=== PATIENT | male | born 1945 | race Caucasian/White ===

== ENCOUNTER 2019-12-03 12:44 | Inpatient (IN) | payer MEDICARE ==
[~2019-12-03] VITALS: Ht 177.8 cm; Wt 75.3 kg
[2019-12-03] VITALS (9 sets, daily range): BP systolic 122–180; BP diastolic 65–87
--- NOTE | 2019-12-03 12:48 | ER.PDOC ---
General Chief Complaint: Requesting Medical Care Stated Complaint: HIP PAIN Time seen by MD: 12:47 Source: patient Exam Limitations: no limitations History of Present Illness Initial Comments patient getting his out of the car and tripped over uneven parking lot concrete Occurred: just prior to arrival Severity: moderate Injuries/Pain Location: head, lower extremity Context: Tripped Loss of Consciousness: No Loss of Consciousness Review of Systems Constitutional: denies fever Eyes: denies blindness Ears, Nose, Mouth, Throat: denies ear pain Respiratory: denies cough, denies shortness of breath Cardiovascular: denies chest pain, denies palpitations, denies syncope Gastrointestinal: denies abdominal pain, denies vomiting Genitourinary: denies pain Musculoskeletal: denies neck pain Skin: denies rash Psychiatric/Neurological: headache Physical Exam General Appearance: No Apparent Distress, WD/WN Head: Contusions, Tenderness Eyes: bilateral eye normal inspection, bilateral eye PERRL, bilateral eye EOMI Ears, Nose, Mouth, Throat: No Evidence of ENT Injury Neck: Non-Tender Cardiovascular/Respiratory: Regular Rate, Rhythm Gastrointestinal: Non Tender Back: Normal Inspection Extremities: Tenderness Neurologic/Psychiatric: behavioral health consultant II-XII NML as Tested, Alert, Normal Mood/Affect, Oriented x 3 Skin: Normal Color Comments tenderness left hip left elbow and abrasion left parietal area, patient has residual lue and lle weakness and difficulty speaking from previous stroke. Dilma Coma Score Best Eye Response: (4) Open Spontaneously Best Verbal Response: (5) Oriented Best Motor Response: (6) Obeys Commands Results/Orders Results/Orders Orders - LUCRETIA REINA MD Cbc With Auto Diff (12/03/19 12:52) Comprehensive Metabolic Panel (12/03/19 12:52) Creatine Kinase (12/03/19 12:52) Creatine Kinase Mb (12/03/19 12:52) Troponin I (12/03/19 12:52) PT (12/03/19 12:52) Partial Thromboplastin Time. (12/03/19 12:52) Ekg-Routine (12/03/19 12:52) Saline Lock (12/03/19 12:52) Ct Head Wo Contrast (12/03/19 13:18) Ct Cervical Spine (12/03/19 13:18) Xr Hip Lt 2v W/Pelvis (3/6/20 13:18) Xr Elbow Lt (12/03/19 13:18) Morphine Sulfate (Morphine Sulfate) (12/03/19 14:30) Ondansetron Hcl/Pf (Zofran) (12/03/19 14:30) 0.9 % Sodium Chloride (Ns 1000ml) (12/03/19 14:30) Vital Signs Date Time Temp Pulse Resp B/P (MAP) Pulse Ox O2 Delivery O2 Flow Rate FiO2 12/03/19 14:08 98.2 82 18 180/87 (118) 98 Room Air 12/03/19 14:07 98.2 82 18 12/03/19 13:58 98.2 82 20 98 Laboratory Tests Test 12/03/19 13:05 White Blood Count 7.2 10^3/uL (4.5-11.0) Red Blood Count 4.98 10^6/uL (4.50-5.90) Hemoglobin 14.8 g/dL (13.9-16.3) Hematocrit 44.3 % (37.0-53.0) Mean Corpuscular Volume 89.0 fL (78-100) Mean Corpuscular Hemoglobin 29.7 pg (26-34) Mean Corpuscular Hemoglobin Concent 33.4 g/dL (33-36.5) Red Cell Distribution Width 12.8 % (11.5-14.5) Platelet Count 257 10^3/uL (150-400) Mean Platelet Volume 9.0 fL (7.8-11.0) Neutrophils (%) (Auto) 73.1 % (41.0-85.0) Lymphocytes (%) (Auto) 13.5 % (24.0-44.0) L Monocytes (%) (Auto) 7.9 % (5.0-12.0) Neutrophils # (Auto) 5.3 10^3/uL (1.8-7.7) Lymphocytes # (Auto) 0.98 10^3/uL1 (1.0-4.8) L Monocytes # (Auto) 0.6 10^3/uL (0.3-0.8) Absolute Immature Granulocyte (auto 0.02 10^3 u/L (0-2) Absolute Eosinophils (auto) 0.3 10^3/uL (0.0-0.2) H Immature Granulocytes % 0.30 % (0.00-0.50) Eosinophils % 4.1 % (0.0-5.0) Basophils % 1.1 % (0.0-0.2) H Basophils # 0.1 10^3/uL (0.0-0.1) Prothrombin Time 10.5 SEC (9.3-11.3) Prothrombin Time INR (Non-Therap) 1.0 Activated Partial Thromboplast Time 27.0 SEC (24.67-30.72) Sodium Level 139 mmol/L (132-145) Potassium Level 3.4 mmol/L (3.6-5.2) L Chloride Level 102.0 mmol/L (96-109) Carbon Dioxide Level 28.3 mmol/L (20.0-32) Anion Gap 12.1 Blood Urea Nitrogen 19 mg/dL (7-18) H Creatinine 1.27 mg/dL (0.59-1.40) Estimated GFR () 66.9 (>/=60) Est GFR (CKD-EPI)(Non-Afr Croatian) 55.3 (>/=60) BUN/Creatinine Ratio 14.0 Glucose Level 126 mg/dL (70-110) H Calcium Level 8.9 mg/dL (8.4-10.5) Total Bilirubin 0.7 mg/dL (0.2-1.0) Aspartate Amino Transferase (AST) 19 U/L (0-35) Alanine Aminotransferase (ALT) 20 U/L (12-78) Alkaline Phosphatase 74 U/L (50-136) Total Creatine Kinase 132 U/L (39-308) Creatine Kinase MB 2.0 ng/mL (0.5-3.6) Troponin I < 0.02 ng/mL (0.00-0.05) Total Protein 7.2 g/dL (6.4-8.2) Albumin 3.8 g/dL (3.4-5.0) Globulin 3.4 Progress Progress discussed case with dr high for admission at 1410, patient was not sure if he was going to stay in hospital which delayed call to ortho. Departure Time of Disposition: 14:18 Disposition: 09 ADMITTED INPATIENT Impression: Primary Impression: Hip fracture Condition: Stable Duration or Time Spent with Pa: LUCRETIA ERVIN MD Dec 03, 2019 12:48
[2019-12-03 13:20] LABS: BASOPHIL # 0.1 10^3/uL (0.0-0.1); BASOPHIL % 1.1 % (0.0-0.2); EOSINOPHIL # 0.3 10^3/uL (0.0-0.2); EOSINOPHIL % 4.1 % (0.0-5.0); LYMPHOCYTES # 0.98 10^3/uL1 (1.0-4.8); LYMPHOCYTES % 13.5 % (24.0-44.0); MEAN CORP HGB 29.7 pg (26-34); MONOCYTES # 0.6 10^3/uL (0.3-0.8); MONOCYTES % 7.9 % (5.0-12.0); NEUTROPHIL # 5.3 10^3/uL (1.8-7.7); NEUTROPHILS % 73.1 % (41.0-85.0); PLATELET COUNT 257 10^3/uL (150-400); RED CELL DISTRIBUTION WIDTH 12.8 % (11.5-14.5)
[2019-12-03 13:45] LABS: ALANINE AMINOTRANSFERASE(ML) 20 U/L (12-78); ALKALINE PHOSPHATASE 74 U/L (50-136); ASPARTATE AMINO TRANSFERASE 19 U/L (0-35); CALCIUM 8.9 mg/dL (8.4-10.5); CARBON DIOXIDE 28.3 mmol/L (20.0-32); GLUCOSE 126 mg/dL (70-110)
--- NOTE | 2019-12-03 13:48 | DIREP ---
PROCEDURE:CT HEAD OR BRAIN W/O CONTRAST COMPARISON:None. INDICATIONS:fall and pain TECHNIQUE:CT images were created without intravenous contrast. FINDINGS: VENTRICLES:The ventricles are normal in size and configuration. CEREBRUM:Small old lacunar infarcts in the right thalamus and right basal ganglia. Chronic microvascular ischemic changes in the deep white matter of both cerebral hemispheres. No CT evidence of acute hemorrhage or infarct or mass or midline shift. CEREBELLUM:Negative. BRAINSTEM:Negative. BASAL CISTERNS:Negative. HEMORRHAGE:No MASS LESION:No ACUTE INFARCT:No SKULL:Normal. SINUSES:Severe mucosal thickening in the ethmoid and maxillary sinuses and a small fluid level in the right frontal sinus. In the appropriate clinical setting, this could represent acute sinusitis. Incidental note is made of a small osteoma in the left frontal sinus. OTHER:None CONCLUSION: 1. Severe mucosal thickening in the ethmoid and maxillary sinuses with small fluid level in the right frontal sinus. In the appropriate clinical setting, this could represent acute sinusitis. 2. Old lacunar infarcts in the right thalamus and right basal ganglia and chronic microvascular ischemic changes in the deep white matter of both cerebral hemispheres with no CT evidence of acute brain abnormalities. Dictated by: Galo El M.D. on 12/03/2019 at 01:41 PM
--- NOTE | 2019-12-03 13:52 | DIREP ---
PROCEDURE: CT SPINE CERVICAL W/O COMPARISON:None. INDICATIONS:fall and pain FINDINGS: ALIGNMENT:Normal. VERTEBRAE:Vertebral body heights are maintained. No evidence of fracture. Dorsal facet arthropathy is present. Degenerative disc disease noted at C5-6 and C6-7. PARASPINAL AREA:Normal. OTHER:Emphysema. There is a questionable 11 mm noncalcified nodule in the medial aspect of the right lung apex. Paranasal sinus disease CONCLUSION: Degenerative changes of the cervical spine. No evidence of acute cervical spine fracture. Questionable right lung apex nodule. CT imaging of the chest is recommended Dictated by: Aide Weston M.D. on 12/03/2019 at 01:47 PM
--- NOTE | 2019-12-03 13:55 | DIREP ---
PROCEDURE:XRAY HIP MIN 2VW-LT COMPARISON:None. INDICATIONS:fall and pain FINDINGS: BONES:Subcapital fracture of the femoral neck with minimal displacement. JOINTS:Normal. SOFT TISSUES:Normal. OTHER:No additional findings. CONCLUSION:Subcapital fracture left femoral neck with minimal displacement. Dictated by: Wayne Cook M.D. on 12/03/2019 at 01:51 PM
--- NOTE | 2019-12-03 13:56 | DIREP ---
PROCEDURE:XRAY ELBOW 2VWS-LT COMPARISON:None. INDICATIONS:fall and pain FINDINGS: BONES:Normal. JOINTS:Normal. No displaced anterior or posterior fat pads. SOFT TISSUES:Normal. OTHER:Normal. CONCLUSION:Normal left elbow. Dictated by: Wayne Cook M.D. on 12/03/2019 at 01:54 PM
--- NOTE | 2019-12-03 14:16 | PCM.EKG ---
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
[2019-12-03] MEDS ORDERED: MORPHINE SULFATE IV ONE (14:30)
[2019-12-03] MEDS ORDERED: NS 1000ML 1,000 ML IV ONE (14:30)
[2019-12-03] MEDS ORDERED: ZOFRAN IV ONE (14:30)
--- NOTE | 2019-12-03 15:11 | ER.CONS ---
DATE OF SERVICE: CHIEF COMPLAINT: Painful left hip. HISTORY OF PRESENT ILLNESS: The patient is a 74-year-old male who is currently on route between [place] and [place]. He fell outside of his moving van and was unable to ambulate, complaining of pain about the left hip. The patient was seen by the Emergency Room physician, whose exam and x-rays showed a left femoral neck fracture. PHYSICAL EXAMINATION: The patient's exam today shows that he has some abrasions about the left elbow, but demonstrates normal flexion and extension. The x-rays about the left elbow did not show any fractures or dislocations. The patient's left hip has no bruising or open wounds. He has decreased range of motion secondary to pain. The x-rays show a subcapital fracture of the left hip. The patient's right upper extremity and right lower extremity have no areas of tenderness or deformity. ASSESSMENT: Left femoral neck fracture. PLAN: The patient will be admitted for bipolar arthroplasty. The patient will be cleared by the hospitalist and taken to the operating room once he is cleared. Crescencio Aguilar MD DR: RONAK/ebenezer JOB# [id number]
[2019-12-03] MEDS ORDERED: LISI-410 PO (15:17)
--- NOTE | 2019-12-03 15:52 | HPH ---
ADMIT DATE: 12/03/2019 CHIEF COMPLAINT: Painful left hip. HISTORY OF PRESENT ILLNESS: The patient is a 74-year-old male, previous community ambulator with a cane because of arthritis in his knees and previous CVA, fell outside of his moving van this afternoon and injured his left hip. The patient has had 2 previous CVAs; however, no significant weakness other than a little bit of a left foot drop. The patient and his are en route between [place] and [place]. The patient's x-rays show a left femoral neck fracture. He has no other apparent injuries. PAST MEDICAL HISTORY AND MEDICAL PROBLEMS: Include a history of hypertension as well as a history of 2 previous CVAs. He did not have significant weakness other than some mild weakness about the left foot as a result of these CVAs. PAST SURGICAL HISTORY: Includes cholecystectomy as well as tonsillectomy and carotid stent. MEDICATIONS: Include Lisinopril. ALLERGIES: He has no known drug allergies. SOCIAL HISTORY: The patient is . He does not smoke or drink. FAMILY HISTORY: Unknown. REVIEW OF SYSTEMS: Positive for some difficulty ambulating because of weakness about the left foot. Otherwise, negative for chest pain, shortness of breath, nausea, vomiting, melena, hematochezia, dysuria, hematuria, fever, chills or weight loss. PHYSICAL EXAMINATION: GENERAL: Today shows an elderly 74-year-old white male in no acute distress. HEENT: Within normal limits for his age. CHEST: Clear to auscultation bilaterally. HEART: Regular rate and rhythm. No murmurs. ABDOMEN: Soft, nontender, good bowel sounds. EXTREMITIES: The patient's left hip has tenderness to palpation. He has decreased range of motion about the left hip secondary to pain. He has no open wounds or bruising about the left hip. His left elbow has some superficial skin tears, but has good flexion and extension with no pain. NEUROLOGICAL: The patient is awake and alert. He is oriented x 3. Cranial nerves 2-12 grossly intact. He has 5/5 strength of all muscle groups of both upper and lower extremities except about the left hip, limited by pain. IMAGING STUDIES: The patient's x-rays show a left subcapital hip fracture. ASSESSMENT: 1. Left femoral neck fracture. 2. History of hypertension. 3. History of cerebrovascular accident. PLAN: The patient will be admitted to my service. He will be evaluated by the hospitalist. We will plan on bipolar arthroplasty once the patient is cleared medically. Crescencio Aguilar MD DR: RONAK/ebenezer JOB# [id number]
--- NOTE | 2019-12-03 16:10 | NUR ---
ARRIVAL Pt ARRIVED TO THE ROOM 340 FROM ER IN STRETCHER ACCOMPANIED BY ER NURSE SAGRARIO RN, REPORT RECEIVED FROM NURSE, REORIENTED Pt TO ROOM , CALL DAWSON REENFORCED TO USE CALL DAWSON Pt VERBALIZED UNDERSTANDING.
[2019-12-03] MEDS ORDERED: APRESOLINE IV PRN (16:30)
[2019-12-03] MEDS ORDERED: ZESTRIL PO SCH (16:30)
[2019-12-03] MEDS ORDERED: KLOR-CON 10 PO ONE (16:30)
[2019-12-03] MEDS ORDERED: ULTRAM PO PRN ×2 (18:00)
[2019-12-03] MEDS ORDERED: ZOFRAN IV PRN (18:00)
--- NOTE | 2019-12-03 18:54 | DIREP ---
PROCEDURE:CHEST 1 VIEW COMPARISON:None. INDICATIONS:preop, cough FINDINGS: LUNGS/PLEURA:Small left basilar airspace opacity. No effusion noted. VASCULATURE:Normal. Unremarkable pulmonary vasculature. CARDIAC:Normal. No cardiac silhouette abnormality or cardiomegaly. MEDIASTINUM:Calcified aorta. BONES:Degenerative changes. OTHER:EKG leads. CONCLUSION:Small left basilar airspace opacity, which may represent pneumonia in the proper clinical setting. Dictated by: Isis Oneill M.D. on 12/03/2019 at 06:51 PM
--- NOTE | 2019-12-03 20:46 | CNH ---
DATE OF CONSULTATION: 12/03/2019 HISTORY OF PRESENT ILLNESS: The patient is a 74-year-old male who was admitted by the Orthopedic Surgery by the orthopedic surgeon for fall with subsequent left femoral neck fracture. I was requested to evaluate him for preoperative evaluation/medical management. The patient indicates that he fell at approximately 1:00 p.m. on the day of hospitalization. He states he was helping his out of the car when he stepped on uneven pavement and lost his balance and subsequently fell landing on his left hip and hitting the left side of his head as well. He denies loss of consciousness. At the present time, the patient denies pain of his left hip since he received analgesia in the Emergency Department. He presents for further evaluation. PAST SURGICAL HISTORY: Cholecystectomy, appendectomy, tonsillectomy, right carotid stent. FAMILY HISTORY: Cancer, stroke, diabetes, coronary artery disease, hypertension, hyperlipidemia. SOCIAL HISTORY: Tobacco active smoker. Alcohol denies. Caffeine drinks coffee, tea and cola. Drugs, never. ALLERGIES: No known drug allergies. CODE STATUS: Full. PHYSICAL EXAMINATION: VITAL SIGNS: Blood pressure 168/82, pulse 76, respirations 18, temperature 98.6, 98% on room air. Potassium is 3.4. GENERAL: The patient is alert. He is in no acute distress. He is not adjusting or tachypneic. HEENT: Atraumatic with the exception of purpura of the left temporalis. Otherwise, head is normocephalic. Eyes: Pupils equally round, react to light and accommodation. Extraocular motor intact. Cranial nerves 2-12 are intact. NECK: Shows no JVD, thyromegaly or cervical lymphadenopathy. HEART: Regular rate and rhythm without murmurs, gallops or rubs. LUNGS: Demonstrate bilateral wheezes. No rhonchi or rales with distant breath sounds bilaterally. ABDOMEN: Normal bowel sounds x 4. No thyromegaly or tenderness. The patient has 2/4 pulses in all 4 extremities. EXTREMITIES: Without clubbing, cyanosis or edema. He has 5/5 bilateral lower extremity strength. There is no calf tenderness present bilaterally. Homans sign negative bilaterally as well. ASSESSMENT AND PLAN: 1. Left femoral neck fracture regarding risk stratification. The patient denies a history of coronary artery disease. Denies any history of myocardial infarction. Denies any history of cardiac stent. Denies any history of congestive heart failure. Denies a history of atrial fibrillation. From pulmonary standpoint, the patient denies a history of COPD/emphysema/chronic bronchitis, although he has at least a 64-tsoa-byzz history, so it is not unlikely that he probably does have COPD, which has gone undiagnosed. The patient denies a history of bleeding diathesis and he denies a history of adverse reaction to anesthesia. He has had numerous CVAs in the past along with carotid stenting, which would be a cardiac equivalent. PT/INR within normal limits. Overall, his chemistry is unremarkable. We will check chest x-ray, 1 view as preoperative evaluation. EKG demonstrates a questionable ST segment depression; however, I suspect that this is his normal for which we will monitor the patient on telemetry and check serial cardiac enzymes. If his cardiac enzymes remain unremarkable, the patient will be graded as moderate risk and at the present time, there would be no contraindications to proceeding with surgical intervention; however, again, we will await results of chest x-ray to determine this. 2. Hypokalemia. We will monitor potassium levels intermittently and supplement as necessary. 3. History of cerebrovascular accident. 4. Arthritis. 5. Right apical pulmonary nodule. Upon discharge, patient will need to arrange for CT chest with IV contrast for further characteristics evaluation of this finding. Chest x-ray, 1 view, currently pending. 6. Peripheral vascular disease, status post right carotid stent. 7. Likely chronic obstructive pulmonary disease. The patient has never been formally diagnosed; however, he has at least a 74-higs-ytlj history of smoking and he continues to smoke despite having history of cerebrovascular accident. The patient will be started on DuoNeb q. 6 hours. 8. Hypertension, lisinopril 20 mg p.o. daily. 9. Smoker. The patient will be counseled regarding smoking cessation. 10. DVT prophylaxis: Bilateral SCD. MOISÉS LEE DO DR: VALENTIN/ebenezer JOB# [id number]
[2019-12-04] MEDS ORDERED: ASPIRIN EC PO STA (01:33)
[2019-12-04] MEDS ORDERED: LOPRESSER PO STA (01:33)
[2019-12-04] MEDS ORDERED: LIPITOR PO STA (01:33)
--- NOTE | 2019-12-04 01:38 | NUR ---
TROPONIN CRITICAL TROPONIN LEVEL REPORTED TO DR. LEE AT THIS TIME. NEW ORDERS RECEIVED. SEE EMR FOR ALL NEW ORDERS. PT NOT CLEARED FOR SURGERY. DR PORTER NOTIFIED. SURGICAL TEAM NOTIFIED BY Jordan REAL RN. PT DENIES ANY CHEST PAIN OR DISCOMFORT. EQUAL CHEST RISE AND FALL. RESTING WITH EYES CLOSED. 02 @ 2L PER NC IN PLACE.
[2019-12-04] MEDS ORDERED: ASPIRIN ONE (01:55)
[2019-12-04] MEDS: DUO 0.5-3(2.5) MG/3 ML IH SCH ×3 (01:58→08:54)
[2019-12-04] MEDS: NITRO-BID TD SCH ×2 (02:00→05:58)
[2019-12-04] MEDS ORDERED: LOVENOX SQ SCH (02:00)
--- NOTE | 2019-12-04 02:00 | NUR ---
STAT ORDERS FOR LIPITOR, ASPIRIN 81MG, LOVENOX 70MG, NITRO BID, AND LOPRESSOR 25MG GIVEN PER ORDERS. PT EDUCATED ON TROPONIN HIGH SURGERY IS CANCELED UNTIL CLEARED FOR SURGERY. PT NO LONGER NPO.
--- NOTE | 2019-12-04 04:23 | NUR ---
V-TACH PT HAS HAD MULTIPLE EPISODES OF VTACH. DR LEE NOTIFIED. ORDERS RECEIVED FOR MAGNESIUM LEVEL AND STAT EKG. ORDERS PLACED IN EMR.
--- NOTE | 2019-12-04 04:30 | NUR ---
CARDIOLOGY DR. LEE CALLED BACK AND GAVE ORDERS TO CONSULT PULVERIZER OPERATOR.
--- NOTE | 2019-12-04 04:33 | PCM.EKG ---
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
[2019-12-04 04:51] VITALS: BP 123/63
[2019-12-04] MEDS ORDERED: LACTATED RINGERS 1,000 ML IV SCH (05:30)
--- NOTE | 2019-12-04 06:50 | NUR ---
Troponin Critical troponin at 29.[address] Plunkett. No new orders received.
[2019-12-04 07:39] LABS: ABG PCO2 35.4 mmHg (35.0-45.0); ABG PH 7.409 (7.350-7.450); BE(B) -2.1 mmol/L (-2.0-2.0); HCO3act 21.9 mmol/L (22.0-26.0); pO2 70.2 mmHg (80.0-100.0)
[2019-12-04] MEDS: MORPHINE SULFATE IV PRN ×2 (07:44→09:54)
--- NOTE | 2019-12-04 07:45 | PCM.EKG ---
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1945 Requested By: LEO NEVES Order Number: [id number] Reading MD: Leo Neves Measurements Intervals [place] Rate: 61 P: 5 IN: 168 QRS: 7 QRSD: 100 T: -12 QT: 434 QTc: 438 Interpretive Statements Sinus rhythm Probable left ventricular hypertrophy Borderline T abnormalities, inferior leads Anterior ST elevation, probably due to LVH Compared to ECG 12/03/2019 13:41:15 T-wave abnormality now present Possible ischemia no longer present ST (T wave) deviation still present Electronically Signed On 12-09-2019 11:16:07 CDT by Leo Neves Please click the below link to view image of tracing.
[2019-12-04 08:50] VITALS: BP 100/54
[2019-12-04] MEDS ORDERED: LOPRESSER PO SCH (09:00)
[2019-12-04] MEDS ORDERED: MAGNESIUM SULFATE 50 ML IV ONE (09:00)
[2019-12-04] MEDS ORDERED: ASPIRIN EC PO SCH (09:00)
[2019-12-04] MEDS ORDERED: IPRA3AMP25 IH (09:21)
[2019-12-04] MEDS ORDERED: ASPI-655 PO (09:21)
[2019-12-04] MEDS ORDERED: ATOR20TA PO (09:21)
[2019-12-04] MEDS ORDERED: ENOX80DI SQ (09:21)
[2019-12-04] MEDS ORDERED: METO25TA4 PO (09:21)
[2019-12-04] MEDS ORDERED: NITR1OIN TD (09:21)
--- NOTE | 2019-12-04 09:23 | PRM.DC ---
DC Summary Final Dx: Problems Medical Problems: (1) Hip fracture Status: Acute ICD Codes: S72.009A - Fracture of unspecified part of neck of unspecified femur, initial encounter for closed fracture SNOMED: [id number] Responsible Provider: Crescencio Campbell MD - ER Problem Recorded: Dec 03, 2019 14:19 Last Edited By: Crescencio Campbell MD - Er on Dec 03, 2019 14:47 HPI/Course Problems Acute/Active Problems: (1) Hip fracture Lab/Davi/BBK/Rad Laboratory Tests Test 12/03/19 13:05 12/03/19 16:40 12/03/19 18:15 12/04/19 00:24 White Blood Count 7.2 10^3/uL Red Blood Count 4.98 10^6/uL Hemoglobin 14.8 g/dL Hematocrit 44.3 % Mean Corpuscular Volume 89.0 fL Mean Corpuscular Hemoglobin 29.7 pg Mean Corpuscular Hemoglobin Concent 33.4 g/dL Red Cell Distribution Width 12.8 % Platelet Count 257 10^3/uL Mean Platelet Volume 9.0 fL Neutrophils (%) (Auto) 73.1 % Lymphocytes (%) (Auto) 13.5 % Monocytes (%) (Auto) 7.9 % Neutrophils # (Auto) 5.3 10^3/uL Lymphocytes # (Auto) 0.98 10^3/uL1 Monocytes # (Auto) 0.6 10^3/uL Absolute Immature Granulocyte (auto 0.02 10^3 u/L Absolute Eosinophils (auto) 0.3 10^3/uL Immature Granulocytes % 0.30 % Eosinophils % 4.1 % Basophils % 1.1 % Basophils # 0.1 10^3/uL Prothrombin Time 10.5 SEC Prothrombin Time INR (Non-Therap) 1.0 Activated Partial Thromboplast Time 27.0 SEC Sodium Level 139 mmol/L Potassium Level 3.4 mmol/L Chloride Level 102.0 mmol/L Carbon Dioxide Level 28.3 mmol/L Anion Gap 12.1 Blood Urea Nitrogen 19 mg/dL Creatinine 1.27 mg/dL Estimated GFR () 66.9 Est GFR (CKD-EPI)(Non-Afr [place]) 55.3 BUN/Creatinine Ratio 14.0 Glucose Level 126 mg/dL Calcium Level 8.9 mg/dL Total Bilirubin 0.7 mg/dL Aspartate Amino Transf (AST/SGOT) 19 U/L Alanine Aminotransferase (ALT/SGPT) 20 U/L Alkaline Phosphatase 74 U/L Total Creatine Kinase 132 U/L Creatine Kinase MB 2.0 ng/mL Troponin I < 0.02 ng/mL < 0.02 ng/mL 0.04 ng/mL 17.09 ng/mL Total Protein 7.2 g/dL Albumin 3.8 g/dL Globulin 3.4 Test 12/04/19 06:02 12/04/19 07:30 12/04/19 07:32 Magnesium Level 1.7 mg/dL Troponin I 29.06 ng/mL Hemoglobin 13.0 g/dL Hematocrit 39.0 % Pro-B-Type Natriuretic Peptide 2920 pg/mL Blood Gas Sample Site RT BRACIAL ARTERY Blood Gas pH 7.409 Blood Gas PCO2 35.4 mmHg Blood Gas PO2 70.2 mmHg Blood Gas HCO3 21.9 mmol/L Blood Gas Base Excess -2.1 mmol/L Femi Test N/A Arterial Blood Oxygen Saturation 94.2 % Deoxyhemoglobin 5.7 % Carboxyhemoglobin 0.9 % Methemoglobin 0.4 % Total Hemoglobin 13.9 % Total Oxygen Concentration 18.2 % Blood Gas Temperature 37 Oxygen Delivery Method (LAB) NASAL CANNULA FiO2 28 % Total Carbon Dioxide 23.0 mmol/L Vitals/I&O VS - Last 72 Hours, by Label Date Time Temp Pulse Resp B/P (MAP) Pulse Ox O2 Delivery O2 Flow Rate FiO2 12/04/19 08:56 16 91 12/04/19 08:55 59 16 91 12/04/19 08:55 64 16 93 12/04/19 08:54 59 16 91 Nasal Cannula 2.00 12/04/19 08:50 98.5 60 20 100/54 (69) 92 Nasal Canula 2.00 12/04/19 04:51 98.2 66 18 123/63 (83) 96 Nasal Canula 2.00 12/04/19 02:24 71 14 96 12/04/19 02:22 67 16 94 12/04/19 02:19 85 16 93 Nasal Cannula 2.00 12/04/19 01:59 73 168/78 12/04/19 01:27 Nasal Cannula 2.00 12/03/19 23:51 98.3 73 18 123/65 (84) 91 Nasal Canula 2.00 12/03/19 20:10 98.8 98 18 122/72 (89) 92 Nasal Canula 2.00 12/03/19 17:12 168/78 12/03/19 16:56 Room Air 12/03/19 16:15 97.6 72 18 168/78 (108) 98 Room Air 12/03/19 16:15 18 12/03/19 15:14 98.6 76 18 168/82 (110) 98 Room Air 12/03/19 15:14 18 12/03/19 14:30 98.0 93 18 158/78 (104) 90 Room Air 12/03/19 14:08 98.2 82 18 180/87 (118) 98 Room Air 12/03/19 14:07 98.2 82 18 12/03/19 13:58 98.2 82 20 98 12/03/19 12:46 18 Scheduled Aspirin (Aspirin Ec), 81 MG PO DAILY Atorvastatin 20MG (Lipitor 20MG), 40 MG PO HS Enoxaparin Sodium (Lovenox), 70 MG SQ Q12HR Ipratropium/Albuterol Sulfate (Iprat-Albut 0.5-3(2.5) Mg/3 Ml), 3 ML IH RTQ6 Lisinopril (Lisinopril), 20 MG PO DAILY24, (Reported) Metoprolol Tartrate 25MG (Lopresser 25MG), 25 MG PO BID Nitroglycerin (Nitro-Bid), 1 GM TD Q6 Sepsis Reassessment @ DC 12/04/19 09:10 Referral/Follow-up Transfer to [facility] c/o Dr. Sotomayor, Hospitalist. Prescription/RX: Active Scripts Active Aspirin Ec (Aspirin) 81 Mg Tablet.dr 81 Mg PO DAILY 7 Days Nitro-Bid (Nitroglycerin) 1 Gm Oint...g. 1 Gm TD Q6 7 Days Lopresser 25MG (Metoprolol Tartrate) 25 Mg Tablet 25 Mg PO BID 7 Days Lipitor 20MG (Atorvastatin Calcium) 20 Mg Tablet 40 Mg PO HS 7 Days Lovenox (Enoxaparin Sodium) 80 Mg/0.8 Ml Disp.syrin 70 Mg SQ Q12HR 7 Days Iprat-Albut 0.5-3(2.5) Mg/3 Ml (Ipratropium/Albuterol Sulfate) 3 Ml Ampul.neb 3 Ml IH RTQ6 7 Days Reported Lisinopril 20 Mg Tablet 20 Mg PO DAILY24 MOISÉS LEE DO Dec 04, 2019 09:23
--- NOTE | 2019-12-04 10:28 | NUR ---
Transfer Educated patient on reasons for transfer. Patent verbalized understanding. Called and gave report to Linda STEWART, at [facility]. Gave report to EMS crew at this time. No acute distress noted at this time, patient denies chest pain. Relinquished care for patient at this time.
--- NOTE | 2019-12-04 14:52 | DSH ---
DATE OF DISCHARGE: 12/04/2019 DATE OF DISCHARGE/TRANSFER: To [facility] care of Dr. Sotomayor at 9:14 a.m., 12/04/2019. PRINCIPAL DIAGNOSIS: Hbp-FH-ppprpltsh myocardial infarction. SECONDARY DIAGNOSES: 1. Left femoral neck fracture. 2. Nonsustained ventricular tachycardia. 3. Hypomagnesemia. 4. Hypokalemia. 5. History of cerebrovascular accident. 6. Arthritis. 7. Right apical pulmonary nodule for which the patient will need to follow up with his primary care physician or provider upon discharge for CT chest with IV contrast for further characterization of this previous finding. 8. Peripheral vascular disease, status post right carotid stent. 9. Likely chronic obstructive pulmonary disease. The patient has never been formally diagnosed; however, he has at least a [id number]-byav history of smoking and continues to smoke despite having history of cerebrovascular accident. 10. Hypertension. 11. Smoker. CONSULTATIONS: Orthopedic Surgery as well as Cardiology. DISPOSITION: The patient will be transferred to [facility] care of Dr. Sotomayor, hospitalist with a tentative evaluation by Dr. Duran, oven equipment repairer. DISCHARGE/TRANSFER MEDICATIONS: 1. DuoNeb q.6 hours. 2. Lovenox 70 mg subcutaneously b.i.d. 3. Lisinopril 20 mg p.o. daily. 4. Lipitor 40 mg p.o. at bedtime. 5. Metoprolol 25 mg p.o. b.i.d. 6. Nitro paste 1 inch q.6 hours. 7. Aspirin 81 mg p.o. daily. P.r.n. medications have been excluded from this transfer/discharge medication list. MOISÉS LEE DO DR: VALENTIN/ebenezer JOB# [id number]
--- NOTE | 2019-12-04 18:25 | CNH ---
DATE OF CONSULTATION: 12/04/2019 PRIMARY PHYSICIAN: Dr. Plunkett, hospitalist. CHIEF COMPLAINT: Abnormal troponin post left hip fracture. HISTORY OF PRESENT ILLNESS: The patient is a 74-year-old white male who was traveling and he had a breakdown in his truck and apparently, he says he tripped and fell and he was brought to the Emergency Room, noted to have left hip fracture. Denied any chest pain and he had an EKG, which showed left ventricular hypertrophy and diffuse ST-T wave changes and subsequently, his troponin was elevated at 29 and 17. BNP elevated at 2920 and cardiac consultation sought for an evaluation. On questioning the patient, he has a history of vascular disease, post right carotid endarterectomy with two strokes in the past with CT imaging showing old lacunar infarct in the right thalamus and right basal ganglia, microvascular ischemic changes in the deep white matter of both cerebral hemispheres and he has shortness of breath, was hypoxic, was placed on oxygen and at the present time, his serial EKGs have not shown any significant evolutionary changes of myocardial infarction, but the elevation of troponin from normal troponin at the time of arrival going up to 29 and 17, was indicative of myocardial strain and possibility of subendocardial myocardial ischemia. Hence, I advised the patient to be transferred to [place] for cardiac catheterization and further evaluation and postpone hip replacement at the present time. ALLERGIES: None known. MEDICATIONS: He has been on aspirin 81 mg once a day, Lipitor 20 mg once a day, Lovenox 70 mg subcutaneous b.i.d. I am not sure why he is on Lovenox at this time. He is on DuoNeb nebulizer treatment q. 6 hours, metoprolol 25 mg once a day and Nitro-Bid patch 1 gram ointment on a daily basis. PAST MEDICAL HISTORY: History of vascular disease, right carotid endarterectomy, two strokes as already indicated, history of COPD, hypertension, longstanding; cholecystectomy, appendectomy, tonsillectomy. He says he had a right carotid stent placed. SOCIAL HISTORY: He is 55-60 pack year history of smoking. No history of ethanol abuse, consumption of coffee to a moderate degree. No use of any illicit drugs. FAMILY HISTORY: Positive for cancer, stroke, diabetes and heart problems and dyslipidemia. PHYSICAL EXAMINATION: GENERAL: He is alert, awake, oriented with slow mentation and slightly dysarthric speech was noted. VITAL SIGNS: He is 177 cm, 75 kilograms, BMI 23.8, leant and asthenically built and his pulse was 60, respirations 16, 100/50 blood pressure, saturation 91% on 2 liters nasal cannula. HEENT: Unremarkable. No definite carotid bruits are noted. CHEST: Emphysematous chest. LUNGS: Poor air entry bilaterally. HEART: Sounds S1, S2 normal. ABDOMEN: Scaphoid, nontender. EXTREMITIES: Left hip fracture. External rotation of the left hip, distal pulses felt. NEUROLOGIC: No lateralizing motor deficit could be elicited. He does complain of bilateral upper arm weakness. His full neuro exam could not be done because of his hip fracture and has been doing somnolent under the influence of drugs. IMAGING STUDIES: His EKG shows regular sinus rhythm, nonspecific ST-T wave changes. Echo showed distal septal and apical hypokinesis and ejection fraction of 38%-40%, top normal LV size. LABORATORY DATA: CBC was normal. Chemistry showed troponin from 0.4 to 17, then 29, 2920 BNP. Magnesium was 1.6 and magnesium 2 grams was given IV. IMPRESSION: 1. Probably acute coronary syndrome with subendocardial infarction, non-ST elevation myocardial infarction with troponin elevation, probably has multivessel disease with myocardial strain. 2. Nonsustained ventricular tachycardia noted on telemetry, probability of underlying syncope is a consideration. 3. Left hip fracture. 4. Chronic obstructive pulmonary disease. 5. Hypertension, post right carotid stenting. 6. Old stroke with lacunar infarct in the right thalamus and basal ganglia. RECOMMENDATIONS: At this time, the patient probably needs to be transferred to tertiary care facility for cardiac catheterization to delineate his coronary anatomy and to postpone hip surgery at the present time. Thank you very much for this consultation. Laxdalehand MD PHOEBE Neves: STEVE/ebenezer JOB# [id number]
[2019-12-04] MEDS ORDERED: LIPITOR PO SCH (21:00)
--- NOTE | 2019-12-06 11:06 | CNH ---
DATE OF CONSULTATION: 12/04/2019 A 75-year-old male with underlying history of elevated troponin and significant shortness of breath, hypoxemia, COPD, abnormal EKG, rule out coronary ischemic substrate, non-ST elevation myocardial infarction, 12/04/2019. PRIMARY PHYSICIAN: Hospitalist, Dr. Plunkett and Dr. Neves was a lean consultant. FINDINGS: Mitral valve shows mitral annular calcification, mild reversal of E to A ratio and mildly abnormal EPSS. Aorta is sclerotic with a gradient of 8 mm with adequate aortic valve opening of 1.53 square cm, mild aortic stenosis is noted. Tricuspid valve normal motion with tricuspid regurgitation, velocity of 1.36 meters and right ventricular systolic pressure of 17 mm and thickening of the anterior right ventricular wall with top normal RV size of 2.94 cm. Right atrium is normal. Left atrium is normal. Left ventricle is normal in size around 4.43 cm end diastolic dimension with 3.5 cm systolic dimension with distal septum, apex and inferolateral wall showing hypokinesis. Septum appears to be showing thinning consistent with multi-segmental wall motion abnormality with 40-42% ejection fraction. IVC is mildly dilated and left ventricular end-diastolic volume is 106 mL. Hence picture consistent with multi-segmental wall motion abnormality of the left ventricle consistent with possible significant ischemic substrate with distal septum, apex and inferolateral wall showing hypokinesis and distal septum is more hypokinetic compared to the rest of the wall with decreased LV systolic function, ejection fraction of 40% and thickening of the anterior right ventricular wall with IVC dilatation with top normal RV size consistent with probably underlying obstructive lung disease and right ventricular systolic pressure is not elevated and there is evidence of gradient across the aorto with mitral annular calcification and mild aortic stenosis with aortic sclerosis as documented. No thrombus in any other cardiac chambers. Laxmichand MD PHOEBE Neves: STEVE/ebenezer JOB# [id number]
== END 2019-12-04 10:20 | disposition short-term general hospital (02) | DRG 280 ==
LOC: ER 12:44 → MS 15:14
PROVIDERS: ADMIT Orthopaedic Surgery; ATTEND Orthopaedic Surgery
DX: I21.4 Non-ST elevation (NSTEMI) myocardial infarction (principal); S72.002A Fracture of unspecified part of neck of left femur, initial encounter for closed fracture; I47.2 Ventricular tachycardia; E87.6 Hypokalemia; F17.210 Nicotine dependence, cigarettes, uncomplicated; I10 Essential (primary) hypertension; I73.9 Peripheral vascular disease, unspecified; J44.9 Chronic obstructive pulmonary disease, unspecified; M19.90 Unspecified osteoarthritis, unspecified site; R91.1 Solitary pulmonary nodule; W01.0XXA Fall on same level from slipping, tripping and stumbling without subsequent striking against object, initial encounter; E83.42 Hypomagnesemia; Y93.89 Activity, other specified; Y92.89 Other specified places as the place of occurrence of the external cause; Y99.8 Other external cause status; Z79.899 Other long term (current) drug therapy; Z82.3 Family history of stroke; Z82.49 Family history of ischemic heart disease and other diseases of the circulatory system; Z83.3 Family history of diabetes mellitus; Z86.73 Personal history of transient ischemic attack (TIA), and cerebral infarction without residual deficits; Z90.49 Acquired absence of other specified parts of digestive tract
CPT/HCPCS: 36415; 36600; 70450; 71045; 72125; 73502; 80053; 82550; 82553; 82803; 83735; 83880; 84484; 85014; 85018; 85025; 85610; 85730; 93005; 93306; 94640; 99285; G0378; J1650; J2270; J2405; J3490; J7030; J7120; J7620; 73070-LT